=== PATIENT | female | born 1965 | race Two or more races ===

== ENCOUNTER 2021-10-01 10:59 | Emergency (ER) | payer MEDICAID, OTHER ==
[~2021-10-01] VITALS: Ht 162.6 cm; Wt 81.6 kg
[2021-10-01 14:35] VITALS: BP 131/82
[2021-10-01] MEDS ORDERED: AZIT250T8 PO (14:45)
[2021-10-01] MEDS ORDERED: METH4PAK PO (14:45)
== END 2021-10-01 15:52 | disposition home or self-care (01) ==
LOC: ER 10:59
DX: U07.1 COVID-19 (principal); M79.10 Myalgia, unspecified site
CPT/HCPCS: 36415; 71045; 87426; 93005

== ENCOUNTER 2023-12-02 17:36 | Emergency (ER) | payer MEDICAID, OTHER ==
[~2023-12-02] VITALS: Ht 162.6 cm; Wt 85.0 kg
[~2023-12-02 17:36] MED LIST: AZIT-81 PO; METH4PAK PO
[2023-12-02 19:07] LABS: Basophils # (auto) 0 10 ^3/uL (0-0.2); Basophils % (auto) 0.3 % (0.0-2.0); Eosinophils # (auto) 0.1 10 ^3/uL (0-0.8); Eosinophils % (auto) 1.2 % (0.0-7.0); Hematocrit 41.4 % (36.0-46.0); Hemoglobin 13.8 g/dL (12.2-16.2); Lymphocytes # (auto) 1.9 10 ^3/uL (0.4-5.4); Lymphocytes % (auto) 28.6 % (10.0-50.0); Mean Corpuscular Hemoglobin 30.1 pg (28.0-32.0); Mean Corpuscular Hgb Conc. 33.4 g/dL (32.0-36.0); Mean Corpuscular Volume 90.1 fL (80.0-100.0); Monocytes # (auto) 0.4 10 ^3/uL (0-1.3); Monocytes % (auto) 6.6 % (0.0-12.0); Neutrophils # (auto) 4.2 10 ^3/uL (1.6-8.6); Neutrophils % (auto) 63.3 % (37.0-80.0); Red Cell Distribution Width 13.4 % (11.8-14.3); White Blood Cell 6.7 10^3/uL (4.4-10.8)
[2023-12-02 19:27] LABS: Chloride 107 mmol/L (98-107); Potassium 3.4 mmol/L (3.5-5.1); Sodium 141 mmol/L (136-145)
[2023-12-02 19:28] LABS: Anion Gap 6 (5-15); Calcium 9.6 mg/dL (8.7-10.4); Carbon Dioxide 28 mmol/L (20-30)
[2023-12-02 19:33] LABS: BUN/Creatinine Ratio 14.9 (10.0-20.0); Blood Urea Nitrogen 10 mg/dL (9-23); Glucose 103 mg/dL (74-106)
[2023-12-02] MEDS: POTASSIUM CHL 20 Meq TABLET PO ONE (19:47)
[2023-12-02] MEDS ORDERED: CYCL-837 PO (20:09)
[2023-12-02] MEDS ORDERED: ACET500T58 PO (20:09)
[2023-12-02 20:24] LABS: INR 1.03 (0.9-1.15); Partial Thromboplastin Time 27.6 SEC (24.5-34.5); Prothrombin Time 10.8 sec (9.3-11.8)
[2023-12-02 21:25] VITALS: BP 132/75; TEMP 98.3; O2SAT 97
[2023-12-02] MEDS ORDERED: MECL1TAB31 PO (21:28)
[2023-12-02] MEDS: MECLIZINE HCL 25 MG TAB PO ONE (21:36)
[2023-12-02 21:44] VITALS: PULSE 78; RESP 18
== END 2023-12-02 21:49 | disposition home or self-care (01) ==
LOC: EDBD 17:36 → ER 17:36
DX: S16.1XXA Strain of muscle, fascia and tendon at neck level, initial encounter (principal); S20.219A Contusion of unspecified front wall of thorax, initial encounter; V43.52XA Car driver injured in collision with other type car in traffic accident, initial encounter; Y93.I9 Activity, other involving external motion; Y92.410 Unspecified street and highway as the place of occurrence of the external cause; Y99.8 Other external cause status; R42 Dizziness and giddiness
CPT/HCPCS: 36415; 70450; 71250; 72125; 80048; 84484; 85025; 85610; 85730; 93005; 99285; J8597